=== PATIENT | male | born 1970 | race Hispanic/Latino ===

== ENCOUNTER 2023-10-14 09:06 | Emergency (ER) | payer OTHER, SELFPAY ==
[2023-10-14 09:09] VITALS: BP 176/105
--- NOTE | 2023-10-14 09:44 | ED.GENMED ---
History of Present Illness
General
Chief Complaint: Blood Pressure Problem
Source: patient
Exam Limitations: none
Time Seen by Provider: 10/14/23 09:23
Travel History
Have you had any contact with someone who has COVID-19?: No
Do you have any symptoms of coronavirus? Fever > 100 degrees, chills, cough, shortness of breath, sore throat, loss of taste or smell, muscle aches, or headache?: No
History of Present Illness
History of Present Illness:
52-year-old male presents in referral from family doctor of which he saw last week. He states he was told to have his heart checked out. He has a history of hypertension and has been on amlodipine valsartan 10, 325 as well as nebivolol 5 mg. He
has been on these medications for 2 months. He denies chest pain or shortness of breath. He states he feels fine. He has no complaints. He states his doctor sent him here for a picture of his heart. He has never seen a field research assistant. No recent
travel or surgery. No other complaints at this time
Phy Exam
Physical Exam
Physical Exam:
General: Well-appearing male no acute respiratory distress
HEENT: Normocephalic atraumatic
Heart: Regular rate and rhythm no murmurs
Lungs are clear no wheezing or rales
Extremities without cyanosis or edema
Skin: Warm no rash
Course
Vital Signs
Initial and Last Documented VS:
Initial Vital Signs
Temp Pulse Resp BP Pulse Ox
98.1 F 98 18 176/105 99
10/14/23 09:09 10/14/23 09:09 10/14/23 09:09 10/14/23 09:09 10/14/23 09:09
Last Documented Vital Signs
Temp Pulse Resp BP Pulse Ox
98.1 F 66 20 168/102 97
10/14/23 09:09 10/14/23 10:00 10/14/23 10:00 10/14/23 10:03 10/14/23 10:00
*Critical Care Note
Total Time (30-74mins, 75-104mins- exclusive of procedures): Not Applicable
Update Note
Update Note:
Patient sent in by family doctor but he saw family doctor over a week ago. Patient has no complaints. Please note the entire history and physical was performed with language line video interpretation. Suspect potentially there was a
miscommunication. Patient states he had blood work done at the office and an EKG all of which were normal. He does not want these test done again. I have a call into the family doctor.
Update: Spoke with family doctor's office. He was seen in September almost 3 weeks ago. He was not told to come to the emergency room however they were talking to him about scheduling an echocardiogram. Said they are currently in the process
of precertify and him for an echocardiogram to be performed as an outpatient. I spoke with cardiac services. They do not have him on the schedule for today in the event that he came to the ER by mistake. Cardiac services is aware we will continue
to work on precertified him. Again, using the language line, explained this process and that he should expect a call from his doctor or cardiac services as far as when his echocardiogram will be. He was slightly hypertensive today but is due to
take his blood pressure medications. He will continue these as planned and is stable for discharge.
ED Attending Note
-
Portions of this chart may have been created with voice recognition software.� Occasional wrong word or��sound alike� substitutions may have occurred due to the inherent limitations of voice recognition software.
Discharge Plan
Departure
Patient Disposition: Home (Routine Discharge)
Date of Disposition: 10/14/23
Time of Disposition: 10:22
Patient with high blood pressure during this ER visit?: No
Discharge Problem:
Hypertension
Instructions: High Blood Pressure (DC)
Prescriptions:
No Action
No Current Medications
0
Activity Restrictions/Additional Instructions:
Please continue to follow-up with your family doctor and/or cardiac services to continue to schedule your outpatient echocardiogram. Continue current blood pressure medications. Return if worse otherwise
Interventions
Interventions:
*Risk Screen - Suicide Last Done: 10/14/23 09:46
*General Assessment Last Done: 10/14/23 09:46
*Neglect/Abuse Screening Last Done: 10/14/23 09:46
ED- Fall Risk Assessment Last Done: 10/14/23 10:01
*ED COVID-19 Vaccine History Last Done: 10/14/23 09:46
ED- Cardiac Assessment Last Done: 10/14/23 10:01
ED- Neurological Assessment Last Done: 10/14/23 10:01
ED- Pulmonary Assessment Last Done: 10/14/23 10:01
[2023-10-14 09:46] VITALS: BP 166/109
[2023-10-14 10:00] VITALS: BP 160/111; BMI 25.1
[2023-10-14 10:03] VITALS: BP 168/102
[2023-10-14 11:00] VITALS: BP 160/111
== END 2023-10-14 11:20 | disposition home or self-care (01) ==
LOC: EMR 09:06
PROVIDERS: EMERGENCY PHYSICIAN Emergency Medicine; FAMILY PHYSICIAN Family Medicine
DX: I10 Essential (primary) hypertension (principal); Z79.899 Other long term (current) drug therapy
CPT/HCPCS: 99282